=== PATIENT | female | born 1975 | race African-American/Black ===

== ENCOUNTER 2018-11-20 17:14 | Inpatient (IN) | payer OTHER ==
[2018-11-20 18:01] VITALS: BMI 26.2
--- NOTE | 2018-11-20 19:25 | HP ---
CIWA Score - Admission Criteria [facility] Guidelines: Admission for Medically Managed Detox: Requires at least one of the followin. CIWA greater than 12 2. Seizures within the past 24 hours 3. Delirium tremens within the past 24 hours 4. Hallucinations within the past 24 hours 5. Acute intervention needed for co occurring medical disorder 6. Acute intervention needed for co occurring psychiatric disorder 7. Severe withdrawal that cannot be handled at a lower level of care (continued vomiting, continued diarrhea, abnormal vital signs) requiring intravenous medication and/or fluids 8. Admission ROS [facility] - HPI Chief Complaint: Pt says she is here for rehab for cocaine use disorder. Says she self referred for treatment of cocaine use- says she sniffs and uses it IV. Says she is tired of using. Says mother takes care of her 8 kids- ages 3 to 20. Uses about 20 bags a day- pt very sleepy unable to answer details. 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 DUR- no controlled substances Utox: cocaine Allergies/Adverse Reactions: Allergies Allergy/AdvReac Type Severity Reaction Status Date / Time No Known Allergies Allergy Verified 11/20/18 19:44 Exam Limitations: Other (pt falling asleep) - Ebola screening Have you traveled outside of the country in the last 21 days: No (N) Have you had contact with anyone from an Ebola affected area: No Have you been sick,other than usual withdrawal symptoms: No Do you have a fever: No - Review of Systems Constitutional: Changes in sleep (states she has not slept in a few days) EENT: reports: No Symptoms Reported Respiratory: reports: No Symptoms reported Cardiac: reports: No Symptoms Reported GI: reports: No Symptoms Reported : reports: No Symptoms Reported Musculoskeletal: reports: No Symptoms Reported Integumentary: reports: No Symptoms Reported Neuro: reports: No Symptoms reported Endocrine: reports: No Symptoms Reported Hematology: reports: No Symptoms Reported Psychiatric: reports: No Sypmtoms Reported Other Systems: Reviewed and Negative Patient History - Patient Medical History Hx Asthma: Yes (albuterol) HX Cerebrovascular Accident: Yes (says h/o of R sided weakness from cocaine) Hx Seizures: Yes (on neurontin) Hx Human Immunodeficiency Virus (HIV): No (3 mos negative) Hx Hepatitis C: No (test negative) - Patient Surgical History Hx Orthopedic Surgery: Yes (l ankle repair after fracture) - PPD History Previous Implant?: Yes Documented Results: Negative w/o proof - Reproductive History Patient : No - Smoking Cessation Smoking history: Current every day smoker Have you smoked in the past 12 months: Yes Aproximately how many cigarettes per day: 9 Hx Chewing Tobacco Use: No Initiated information on smoking cessation: Yes 'Breaking Loose' booklet given: 11/20/18 - Substance & Tx. History Substance Use Type: Cocaine (as much as she can) Hx Substance Use Treatment: No Family Disease History - Family Disease History Family History: Unable to Obtain Family Disease History: Other: Mother (pt denies ) Admission Physical Exam [facility] - Vital Signs Vital Signs: Vital Signs - 24 hr 11/20/18 17:55 Temperature 96.9 F L Pulse Rate 84 Respiratory 18 Rate Blood Pressure 130/80 - Physical General Appearance: Yes: Disheveled (smells of urine), Thin, Irritable, Anxious , Other (smells of urine) HEENTM: Yes: Within Normal Limits, EOMI, Pharynx Normal Respiratory: Yes: Within Normal Limits Neck: Yes: Within Normal Limits Breast: Yes: Within Normal Limits Genitourinary: Yes: Within Normal Limits Back: Yes: Within Normal Limits Musculoskeletal: Yes: Within Normal Limits Extremities: Yes: Within Normal Limits Neurological: Yes: Other (L sided weakness, pt sleepy falling asleep during exam , smells of urine) Integumentary: Yes: Within Normal Limits, Other (no track adame noted) Lymphatic: Yes: Within Normal Limits - Diagnostic (1) Cocaine use disorder Current Visit: Yes Status: Acute (2) Seizure Current Visit: Yes Status: Acute (3) Asthma Current Visit: Yes Status: Acute (4) CVA (cerebral vascular accident) Current Visit: Yes Status: Acute Cleared for Admission [facility] - Detox or Rehab [facility] Level of Care: Medically Managed Claeared for Rehab Admission: Yes [facility] Breath Alcohol Content Breath Alcohol Content: 0 Urine Pregancy Test - Result Urine Test Results: Negative- NO Line Present Urine Drug Screen - Results Drug Screen Negative: No Urine Drug Screen Results: ROXY-Cocaine Inpatient Rehab Admission - Initial Determination Are CD services needed?: Yes Free of communicable disease: Yes Not in need of hospitalization: Yes - Rehab Admission Criteria Previous failed treatment: Yes Poor recovery environment: Yes Comorbidities: Yes Lacks judgement: No Patient is meeting Inpatient Rehab admission criteria:: Yes (pt has cocaine use disorder)
[2018-11-20] MEDS ORDERED: P-EPHED 60MG/TRIPROLIDI 2.5MG TABLET PO PRN (19:45)
[2018-11-20] MEDS ORDERED: MAGNESIUM CITRATE 300 ML BOTTLE PO PRN (19:45)
[2018-11-20] MEDS ORDERED: MAGNESIUM HYDROX 2400MG/30ML ORAL SUSPENSION 30 ML CUP PO PRN (19:45)
[2018-11-20] MEDS ORDERED: LOPERAMIDE HCL 2 MG CAPSULE PO PRN (19:45)
[2018-11-20] MEDS ORDERED: MAG HYDROX/AL HYDROX/SIMETH 30 ML UNIT-DOSE CUP PO PRN (19:45)
[2018-11-20] MEDS ORDERED: MELATONIN 5 MG TABLETS PO PRN (22:00)
[2018-11-20] MEDS: GABAPENTIN 400 MG CAPSULE (FP) PO SCH (22:49)
[2018-11-20] MEDS: ACETAMINOPHEN 325 MG TABLET (FP) PO PRN (22:49)
[2018-11-20] MEDS: THIAMINE HCL 100 MG TABLET (FP) PO SCH (22:49)
[2018-11-20] MEDS: guaiFENesin/D-METHORPHAN HB 10 ML UNIT-DOSE CUPS PO PRN (22:50)
[2018-11-20] MEDS ORDERED: TUBERCULIN PPD 5 TU/0.1ML VIAL ID ONE (23:30)
[2018-11-21] MEDS: GABAPENTIN 400 MG CAPSULE (FP) PO SCH ×3 (06:33→21:42)
[2018-11-21] MEDS: ACETAMINOPHEN 325 MG TABLET (FP) PO PRN ×2 (06:40→13:52)
[2018-11-21] MEDS: PRENATAL VITAMINS W/ FOLIC ACID TABLET (FP) PO SCH (10:28)
--- NOTE | 2018-11-21 11:37 | HP ---
Psychiatrist Admission - Data Date of interview: 11/21/18 Admission source: [facility] Identifying data: This is the first admission to [address] [place] [address] for this 43 yo AA mother of 4 ,homeless,supported by PA. Medical History: Seizure disorder,H/O Cocaine induced CVA. Psychiatric History: Patient denies previous psychiatric history.She reports no psychiatric hospitalizations,no history of suicidal attempts. Physical/Sexual Abuse/Trauma History: denies Vital Signs: Vital Signs - 24 hr 11/20/18 11/20/18 11/21/18 17:55 22:25 07:01 Temperature 96.9 F L 99.1 F 98 F Pulse Rate 84 88 99 H Respiratory 18 18 18 Rate Blood Pressure 130/80 103/67 110/71 Allergies/Adverse Reactions: Allergies Allergy/AdvReac Type Severity Reaction Status Date / Time No Known Allergies Allergy Verified 11/20/18 21:13 Date of last physical exam: 11/20/18 Concur with the findings of this exam: Yes - Substance Abuse/Tx History Hx Alcohol Use: Yes (on and off) Hx Substance Use: Yes (reports long history of cocaine IV use (20 bags daily)) Substance Use Type: Alcohol, Cocaine Hx Substance Use Treatment: Yes Mental Status Exam - Mental Status Exam Alert and Oriented to: Time, Place, Person Cognitive Function: Grossly Intact Patient Appearance: Unkempt, Disheveled Mood: Nervous Affect: Mood Congruent Patient Behavior: Cooperative Speech Pattern: Clear Voice Loudness: Normal Thought Process: Goal Oriented Thought Disorder: Being Controlled Hallucinations: Denies Suicidal Ideation: Denies Homicidal Ideation: Denies Insight/Judgement: Fair Sleep: Fair Appetite: Fair Muscle strength/Tone: Normal Gait/Station: Hemiparetic Psychiatric Findings - Problem List ([facility] 1, 2,3) (1) Asthma Current Visit: Yes Status: Chronic (2) CVA (cerebral vascular accident) Current Visit: Yes Status: Resolved (3) Cocaine use disorder Current Visit: Yes Status: Chronic (4) Seizure Current Visit: Yes Status: Chronic - Initial Treatment Plan Initial Treatment Plan: Will monitor progress.
[2018-11-21] MEDS ORDERED: FLU VACCINE QUAD 60 MCG/0.5 ML (MDV 18-19) IM ONE (12:15)
[2018-11-21] MEDS: ALBUTEROL SO4 8 GM HFA INHALER IH PRN (13:52)
[2018-11-21 16:23] LABS: HEMATOCRIT 36.8 % (32.4-45.2); HEMOGLOBIN 12.4 GM/dL (10.7-15.3); MCH 26.4 pg (25.7-33.7); MCHC 33.6 g/dl (32.0-36.0); MEAN CELL VOLUME 78.5 fl (80-96); MEAN PLT VOLUME 9.6 fl (7.5-11.1); PLATELET COUNT 265 K/MM3 (134-434); RBC 4.68 M/mm3 (3.60-5.2); RDW 18.4 % (11.6-15.6); WHITE BLOOD COUNT 10.3 K/mm3 (4.0-10.0)
[2018-11-21 17:33] LABS: ALBUMIN 3.1 g/dl (3.4-5.0); ALK PHOS 89 U/L (45-117); ANION GAP 8 MMOL/L (8-16); BILIRUBIN,TOTAL 0.2 mg/dL (0.2-1); BLOOD UREA NITROGEN 8 mg/dL (7-18); CALCIUM 8.6 mg/dL (8.5-10.1); CHLORIDE 108 mmol/L (98-107); CO2 23 mmol/L (21-32); CREATININE 0.8 mg/dL (0.55-1.3); GLUCOSE,RANDOM 87 mg/dL (74-106); SGOT/AST 16 U/L (15-37); SGPT/ALT 19 U/L (13-61); SODIUM 139 mmol/L (136-145)
[2018-11-21] MEDS: THIAMINE HCL 100 MG TABLET (FP) PO SCH (21:42)
[2018-11-22] MEDS: GABAPENTIN 400 MG CAPSULE (FP) PO SCH ×3 (06:43→21:42)
[2018-11-22] MEDS: ALBUTEROL SO4 8 GM HFA INHALER IH PRN (09:18)
[2018-11-22] MEDS: PRENATAL VITAMINS W/ FOLIC ACID TABLET (FP) PO SCH (09:20)
[2018-11-22] MEDS: guaiFENesin/D-METHORPHAN HB 10 ML UNIT-DOSE CUPS PO PRN ×2 (09:20→15:48)
[2018-11-22] MEDS: MENTHOL/PHENOL 1 EACH UD MM PRN (09:21)
[2018-11-22] MEDS: IBUPROFEN 400 MG TABLET (FP) PO PRN (14:23)
[2018-11-22] MEDS ORDERED: PT OWN MED DRAWER 7, Y5N ONE (19:50)
[2018-11-22] MEDS: THIAMINE HCL 100 MG TABLET (FP) PO SCH (21:42)
[2018-11-23] MEDS: GABAPENTIN 400 MG CAPSULE (FP) PO SCH ×3 (06:56→21:41)
[2018-11-23] MEDS: PRENATAL VITAMINS W/ FOLIC ACID TABLET (FP) PO SCH (10:12)
[2018-11-23] MEDS: IBUPROFEN 400 MG TABLET (FP) PO PRN (10:12)
[2018-11-23] MEDS: guaiFENesin/D-METHORPHAN HB 10 ML UNIT-DOSE CUPS PO PRN ×2 (10:12→20:09)
[2018-11-23 13:45] LABS: URINE APPEARANCE CLOUDY; URINE BILIRUBIN NEGATIVE (<2.0 mg/dL); URINE COLOR YELLOW; URINE GLUCOSE (UA) NEGATIVE (NEGATIVE); URINE KETONE NEGATIVE (NEGATIVE); URINE LEUK ESTERASE 1+ (NEGATIVE); URINE NITRITE POSITIVE (NEGATIVE); URINE PROTEIN NEGATIVE (NEGATIVE); URINE UROBILINOGEN NEGATIVE mg/dL (0.2-1.0)
[2018-11-23 14:11] LABS: EPI CELLS FEW /HPF (FEW); URINE MUCUS RARE
[2018-11-23] MEDS: THIAMINE HCL 100 MG TABLET (FP) PO SCH (21:41)
[2018-11-24] MEDS: GABAPENTIN 400 MG CAPSULE (FP) PO SCH ×3 (07:32→21:22)
[2018-11-24] MEDS: PRENATAL VITAMINS W/ FOLIC ACID TABLET (FP) PO SCH (09:27)
[2018-11-24] MEDS: IBUPROFEN 400 MG TABLET (FP) PO PRN ×2 (09:28→21:47)
[2018-11-24] MEDS: guaiFENesin/D-METHORPHAN HB 10 ML UNIT-DOSE CUPS PO PRN ×2 (09:29→21:47)
[2018-11-24] MEDS: MENTHOL/PHENOL 1 EACH UD MM PRN (19:02)
[2018-11-24] MEDS: THIAMINE HCL 100 MG TABLET (FP) PO SCH (21:22)
[2018-11-25] MEDS: GABAPENTIN 400 MG CAPSULE (FP) PO SCH ×3 (06:43→21:19)
[2018-11-25] MEDS: guaiFENesin/D-METHORPHAN HB 10 ML UNIT-DOSE CUPS PO PRN ×2 (06:43→14:15)
[2018-11-25] MEDS: ACETAMINOPHEN 325 MG TABLET (FP) PO PRN (06:44)
[2018-11-25] MEDS: PRENATAL VITAMINS W/ FOLIC ACID TABLET (FP) PO SCH (10:06)
[2018-11-25] MEDS: IBUPROFEN 400 MG TABLET (FP) PO PRN (12:28)
[2018-11-25] MEDS: THIAMINE HCL 100 MG TABLET (FP) PO SCH (21:19)
[2018-11-26] MEDS: GABAPENTIN 400 MG CAPSULE (FP) PO SCH (06:48)
[2018-11-26] MEDS: guaiFENesin/D-METHORPHAN HB 10 ML UNIT-DOSE CUPS PO PRN (06:48)
[2018-11-26] MEDS: ACETAMINOPHEN 325 MG TABLET (FP) PO PRN (06:50)
[2018-11-26 07:13] VITALS: BP 102/68; PULSE 99; TEMP 98.1
[2018-11-26] MEDS: PRENATAL VITAMINS W/ FOLIC ACID TABLET (FP) PO SCH (10:23)
== END 2018-11-26 13:24 | disposition home or self-care (01) | DRG 774 ==
LOC: YASAS 17:14 → Y3E 20:36
PROVIDERS: ADMIT Psychiatry & Neurology Psychiatry; ATTEND Psychiatry & Neurology Psychiatry
PROC: HZ42ZZZ Group Counseling for Substance Abuse Treatment, Cognitive-Behavioral (ICD-10-PCS; principal; 2018-11-20)
DX: F14.10 Cocaine abuse, uncomplicated (principal); F17.210 Nicotine dependence, cigarettes, uncomplicated; G40.909 Epilepsy, unspecified, not intractable, without status epilepticus; J45.909 Unspecified asthma, uncomplicated; I69.844 Monoplegia of lower limb following other cerebrovascular disease affecting left non-dominant side
CPT/HCPCS: 36415; 80053; 81003; 81015; 85027; 86593; 87389